=== PATIENT | female | born 1985 | race Caucasian/White ===

== ENCOUNTER 2019-05-29 14:50 | Inpatient (IN) ==
[2019-05-29] MEDS ORDERED: Famotidine 20 MG/2 ML VIAL IVP PRN (14:53)
[2019-05-29] MEDS ORDERED: Naloxone 0.4 MG/ML INJ IVP PRN (14:53)
[2019-05-29] MEDS ORDERED: Ondansetron 4 MG/2 ML VIAL IVP PRN (14:53)
[2019-05-29] MEDS ORDERED: Metoclopramide 10 MG/2 ML VIAL IVP PRN (14:53)
[2019-05-29] MEDS ORDERED: Ringers Solution, Lactated 1,000 ML IVC SCH (15:00)
== END 2019-05-29 17:01 | disposition home or self-care (01) | DRG 566 ==
LOC: 1NENULAB 14:50
PROVIDERS: ADMIT Advanced Practice Midwife; ATTEND Advanced Practice Midwife

== ENCOUNTER 2019-05-31 09:07 | Inpatient (IN) ==
[~2019-05-31 09:07] MED LIST: Famotidine 20 MG/2 ML VIAL IVP PRN; Ibuprofen 800 MG TABLET PO ONE; Lidocaine 1% 20 ML MDV ONE; Metoclopramide 10 MG/2 ML VIAL IVP PRN; Naloxone 0.4 MG/ML INJ IVP PRN; Oxytocin 20 units/ LR 1000 mL 20 UNIT/1,000 ML BAG IVC ONE
[2019-05-31 10:19] LABS: Amphetamine Screen,Urine Negative ng/mL (Cutoff=1000); Barbiturate Screen,Urine Negative ng/mL (Cutoff=200); Benzodiazepines Screen,Urine Negative ng/mL (Cutoff=200); Cannabinoid Screen,Urine Negative ng/mL (Cutoff = 50); Cocaine Screen,Urine Negative ng/mL (Cutoff= 300); Opiate Screen,Urine Negative ng/mL (Cutoff=300); Phencyclidine Screen,Urine Negative ng/mL (Cutoff=25)
[2019-05-31] MEDS ORDERED: Rho Immune Globulin 1,500 UNIT SYRINGE IM PRN (12:22)
[2019-05-31] MEDS ORDERED: Oxytocin 20 units/ LR 1000 mL 20 UNIT/1,000 ML BAG IVC SCH (12:22)
[2019-05-31] MEDS ORDERED: miSOPROStoL 100 MCG TABLET PO STA (12:22)
[2019-05-31] MEDS ORDERED: Benzocaine/Menthol 56 GM AEROSOL SPRAY TP PRN (12:22)
[2019-05-31] MEDS ORDERED: Lanolin 7 G OINT...G. TP PRN (12:22)
[2019-05-31] MEDS: Acetaminophen 325 MG TABLET PO SCH ×3 (12:57→23:57)
[2019-05-31] MEDS: Ibuprofen 600 MG TABLET PO SCH ×3 (12:58→23:57)
[2019-05-31] MEDS ORDERED: *HR* Buprenorphine HCl 8 MG TAB.SUBL SL SCH (18:00)
[2019-05-31] MEDS ORDERED: BUPRENORPHINE SL SCH (18:00)
[2019-06-01 06:06] LABS: Basophils # 0.1 K/mcL (0.0-0.2); Basophils % 0.5 %; Eosinophils # 0.2 K/mcL (0.0-0.6); Hematocrit 32.1 % (35.3-44.9); Hemoglobin 10.7 g/dL (11.5-15.4); Immature Granulocytes % 0.9 % (0-4); Lymphocytes % 24.9 %; Mean Corpuscular HGB Conc 33.3 g/dL (31.6-35.5); Mean Corpuscular Volume 96.1 fL (83.0-100.0); Mean Platelet Volume 9.7 fL (9.4-12.4); Monocytes % 8.4 %; Neutrophils # 7.7 K/mcL (1.6-8.9); Platelet Count 206 K/mcL (140-400); Red Blood Count 3.34 M/mcL (3.82-4.97); Red Cell Distribution Width 13.3 % (11.5-14.5); Segmented Neutrophils % 63.3 %; White Blood Count 12.2 K/mcL (4.3-11.1)
[2019-06-01] MEDS: Acetaminophen 325 MG TABLET PO SCH ×2 (07:05→14:23)
[2019-06-01] MEDS: Ibuprofen 600 MG TABLET PO SCH ×2 (07:05→14:23)
[2019-06-01 07:47] VITALS: BP 98/56
[2019-06-01] MEDS ORDERED: Prenatal Vit/FA 1 EACH TABLET PO SCH (09:00)
[2019-06-01] MEDS ORDERED: Etonogestrel 68 MG IMPLANT IL ONE (10:16)
[2019-06-01] MEDS ORDERED: Lidocaine/EPI 1:100k 1% 30 ML VIAL INFILT ONE (10:16)
== END 2019-06-01 14:26 | disposition home or self-care (01) | DRG 560 ==
LOC: 1NENULAB → 1NENUOBS 12:00
PROVIDERS: ADMIT Obstetrics & Gynecology; ATTEND Obstetrics & Gynecology